=== PATIENT | female | born 1970 | race Caucasian/White ===

== ENCOUNTER 2017-08-12 12:14 | Emergency (ER) | payer SELFPAY ==
[~2017-08-12] VITALS: Ht 160 cm; Wt 100.0 kg
[2017-08-12 12:16] VITALS: BP 124/92; PULSE 117; RESP 18; TEMP 97.3; O2SAT 96
[2017-08-12 15:26] VITALS: RESP 24; O2SAT 95
[2017-08-12 15:29] VITALS: BP_SYST 119; BP_SYST 132; BP_DIAS 71; BP_DIAS 72; BP_DIAS 82; PULSE 72; RESP 20; RESP 24; RESP 30; RESP 38; O2SAT 99
--- NOTE | 2017-08-12 15:58 | PD ---
HPI Chief Complaint: GI Complaint Time Seen by Provider: 15:42 Travel History International Travel<30 days: No Contact w/Intl Traveler<30days: No Traveled to known affect area: No History of Present Illness HPI 47-year-old female presents to emergency Department with complaint of blood in her stool 4 months. Was sent by her primary care provider Dr. Stewart who she followed up for the first time today. Also complaining of right lower quadrant abdominal pain that has been on and off for the last 4 months. Denies abdominal pain at this time. Denies fever, urinary symptoms. Reports nausea at times without vomiting. Reports having episodes of chest pain, shortness of breath, lightheadedness or dizziness. Denies chest pain at this time. Reports loose stools. Denies taking blood thinners. Symptoms are milder in severity. She does take Excedrin a lot for her migraine headaches. Denies history of abdominal surgeries. Last menstrual period was beginning of July. Denies vaginal discharge, odor. Patient adopted an unknown family history. She has history of ablation 3, pacemaker, history of mitral valve prolapse, SVT, tachycardia. Takes metoprolol. Allergies to penicillin. Has no other medical complaints. No other modifying factors or associated signs and symptoms. PFSH Past Medical History Heart Rhythm Problems: Yes (SVT ) Cardiac Catheterization: Yes Cardiovascular Problems: Yes Tetanus Vaccination: > 5 Years ?: Not Past Surgical History Cardiac Surgery: Yes (ABLATION X3, PACEMAKER ) Social History Alcohol Use: Yes (OCC) Tobacco Use: No Substance Use: No Allergies-Medications (Allergen,Severity, Reaction): Uncoded Allergies: PENICILLIN (Allergy, Intermediate, RASH, 08/12/17) Reported Meds & Prescriptions Reported Meds & Active Scripts Active Protonix (Pantoprazole Sodium) 40 Mg Tab 40 Mg PO DAILY Review of Systems Except as stated in HPI: all other systems reviewed are Neg Physical Exam Narrative GENERAL: Well-nourished, well-developed female patient, in no acute distress; afebrile SKIN: Warm and dry. HEAD: Atraumatic. Normocephalic. EYES: Pupils equal and round. No scleral icterus. No injection or drainage. ENT: Mucosa pink and moist. Airway patent. NECK: Trachea midline. CARDIOVASCULAR: Regular rate and rhythm. No murmur appreciated. RESPIRATORY: No accessory muscle use. Clear to auscultation. Breath sounds equal bilaterally. GASTROINTESTINAL: Abdomen soft, tenderness on palpation to right lower and left lower quadrant, nondistended. Hepatic and splenic margins not palpable. Bowel sounds are active 4 quadrants. Nonrigid. No rebound tenderness. No guarding. RECTAL EXAM: Exam done in the presence of a nurse. No masses or tenderness, stool is reddish/brown. Hemaprompt positive. No visualized external hemorrhoids. BACK: No CVA tenderness. MUSCULOSKELETAL: No obvious deformities. No clubbing. No cyanosis. No edema. NEUROLOGICAL: Awake and alert. Oriented 3. No obvious cranial nerve deficits. Motor grossly within normal limits. Normal speech. PSYCHIATRIC: Appropriate mood and affect; insight and judgment normal. Data Data Last Documented VS Vital Signs Date Time Temp Pulse Resp B/P (MAP) Pulse Ox O2 Delivery O2 Flow Rate FiO2 08/12/17 15:29 86 20 132/71 (91) 61 24 119/72 (88) 72 38 132/82 (99) 08/12/17 15:29 99 Room Air 08/12/17 12:16 97.3 Orders Orders Complete Blood Count With Diff (08/12/17 13:22) Comprehensive Metabolic Panel (08/12/17 13:22) Prothrombin Time / Inr (Pt) (08/12/17 13:22) Act Partial Throm Time (Ptt) (08/12/17 13:22) Ecg Monitoring (08/12/17 13:22) Oximetry (08/12/17 13:22) Oxygen Administration (08/12/17 13:22) Iv Access Insert/Monitor (08/12/17 13:22) Type And Screen (08/12/17 13:22) Lipase (08/12/17 15:59) Urinalysis - C+S If Indicated (08/12/17 15:59) Sodium Chlor 0.9% 1000 Ml Inj (Ns 1000 M (08/12/17 15:59) Sodium Chloride 0.9% Flush (Ns Flush) (08/12/17 16:00) Electrocardiogram (08/12/17 15:59) Magnesium (Mg) (08/12/17 15:59) Troponin I (08/12/17 15:59) Chest, Single Ap (08/12/17 15:59) Ct Abd/Pel W Iv Contrast(Rout) (08/12/17 16:22) Iohexol 350 Inj (Omnipaque 350 Inj) (08/12/17 17:30) Labs Laboratory Tests Test 08/12/17 14:16 08/12/17 16:38 Prothrombin Time 10.1 SEC Prothromb Time International Ratio 0.9 RATIO Activated Partial Thromboplast Time 24.3 SEC Urine Color YELLOW Urine Turbidity HAZY Urine pH 5.5 Urine Specific [place] 1.018 Urine Protein NEG mg/dL Urine Glucose (UA) NEG mg/dL Urine Ketones NEG mg/dL Urine Occult Blood TRACE Urine Nitrite NEG Urine Bilirubin NEG Urine Urobilinogen LESS THAN 2.0 MG/DL Urine Leukocyte Esterase TRACE Urine RBC 1 /hpf Urine Squamous Epithelial Cells 2 /hpf Urine Bacteria OCC /hpf Urine Mucus FEW /lpf Microscopic Urinalysis Comment CULT NOT INDICATED Blood Urea Nitrogen 13 MG/DL Creatinine 0.99 MG/DL Random Glucose 90 MG/DL Total Protein 7.4 GM/DL Albumin 3.5 GM/DL Calcium Level 8.7 MG/DL Alkaline Phosphatase 89 U/L Aspartate Amino Transf (AST/SGOT) 19 U/L Alanine Aminotransferase (ALT/SGPT) 21 U/L Total Bilirubin 0.3 MG/DL Sodium Level 137 MEQ/L Potassium Level 4.2 MEQ/L Chloride Level 105 MEQ/L Carbon Dioxide Level 24.6 MEQ/L Anion Gap 7 MEQ/L Estimat Glomerular Filtration Rate 60 ML/MIN Magnesium Level 2.3 MG/DL Troponin I LESS THAN 0.02 NG/ML Lipase 114 U/L White Blood Count 10.4 TH/MM3 Red Blood Count 4.42 MIL/MM3 Hemoglobin 14.4 GM/DL Hematocrit 41.4 % Mean Corpuscular Volume 93.8 FL Mean Corpuscular Hemoglobin 32.6 PG Mean Corpuscular Hemoglobin Concent 34.7 % Red Cell Distribution Width 13.5 % Platelet Count 288 TH/MM3 Mean Platelet Volume 8.6 FL Neutrophils (%) (Auto) 67.0 % Lymphocytes (%) (Auto) 20.8 % Monocytes (%) (Auto) 9.8 % Eosinophils (%) (Auto) 1.9 % Basophils (%) (Auto) 0.5 % Neutrophils # (Auto) 7.0 TH/MM3 Lymphocytes # (Auto) 2.2 TH/MM3 Monocytes # (Auto) 1.0 TH/MM3 Eosinophils # (Auto) 0.2 TH/MM3 Basophils # (Auto) 0.1 TH/MM3 CBC Comment DIFF FINAL Differential Comment MDM Medical Decision Making Medical Screen Exam Complete: Yes Emergency Medical Condition: Yes Medical Record Reviewed: Yes Differential Diagnosis GI bleed, hemorrhoids, polyps, anal fissure Narrative Course 47-year-old female with bloody stool 4 months. Was sent by her primary care provider Dr. Calvillo. Hemaprompt positive. IV set obtained. CBC, CMP, lipase, troponin, magnesium, coags, urinalysis ordered. Normal saline bolus ordered. I offered the patient pain medication and an antiemetic and she declined at this time. 1623: Dr. Rodríguez evaluated the patient and ordered CT abdomen/pelvis. 1715: Chest x-ray with no acute findings. CMP unremarkable. Troponin less than 0.02. Magnesium 2.3. Lipase 114. Coags unremarkable. Urinalysis without signs of infection. 1818: CT abdomen/pelvis concludes: No acute abnormality demonstrated; Mild fatty infiltration of the liver; Simple, benign appearing cyst of the liver; Simple, benign appearing cyst of the left ovary. The patient was discussed with Dr. Neff. I offered for the patient to be observed in the chest pain center and the patient declined. Risks of not being observed in the chest pain center were discussed. Patient verbalizes understanding and agreement. She says she will follow up outpatient. Instructed patient to follow up with gastroenterology. Protonix prescribed for home. Instructed patient to stop taking Excedrin and other NSAIDs. Instructed patient to follow up with primary care provider. Patient verbalizes understanding and agreement with treatment plan. Patient is medically cleared and stable for discharge. Discussed reasons to return to the emergency department. Patient agrees with treatment plan. The patients vital signs are stable and the patient is stable for outpatient follow-up and treatment. Patient discharged home, stable and in no acute distress. Diagnosis Primary Impression: GI bleed Qualified Codes: K92.2 - Gastrointestinal hemorrhage, unspecified Referrals: Director Of Restaurant Operations Primary Care Physician Patient Instructions: Gastrointestinal Bleeding (ED), General Instructions Additional Instructions: Avoid taking Excedrin or any other NSAID such as ibuprofen or Motrin Protonix as prescribed Follow-up with gastroenterology Follow-up with primary care provider Return to the emergency department immediately if worsening of symptoms Med/Other Pt SpecificInfo: Prescription(s) given Scripts Pantoprazole (Protonix) 40 Mg Tab 40 MG PO DAILY for Reflux, #30 TAB 0 Refills Prov: Deysi Marley 08/12/17 Disposition: 01 DISCHARGE HOME Condition: Stable Deysi Marley Aug 12, 2017 15:58
[2017-08-12] MEDS ORDERED: SODIUM CHLOR 0.9% 1000 ML INJ 1,000 ML IV SCH (15:59)
[2017-08-12] MEDS ORDERED: SODIUM CHLORIDE 0.9% FLUSH 10 ML FLUSH IV FLUSH PRN (16:00)
--- NOTE | 2017-08-12 16:32 | RADRPT ---
EXAM DATE/TIME: 08/12/2017 16:09 [facility] COMPARISON: No previous studies available for comparison. INDICATIONS : Left sided chest pain for one day with rectal bleeding for 4 months. MEDICAL HISTORY : SVT. Mitral valve prolapse. Tachycardia. Arythmia. SURGICAL HISTORY : None. ENCOUNTER: Initial ACUITY: 4 - 6 months PAIN SCORE: 3/10 LOCATION: Left chest FINDINGS: A single view of the chest demonstrates the lungs to be symmetrically aerated without evidence of mas s, infiltrate or effusion. The cardiomediastinal contours are unremarkable. Osseous structures are intact. CONCLUSION: 1. No acute cardiopulmonary disease. Ford Arriaza MD on August 12, 2017 at 16:30 Board Certified Radiologist. This report was verified electronically.
[2017-08-12 16:49] LABS: BACTERIA, URINE OCC /hpf; BLOOD, URINE TRACE (NEG); COMMENT (UR) CULT NOT INDICATED; CULTURE IF INDICATED CULT NOT INDICATED; GLUCOSE,URINE NEG (NEG); KETONE, URINE NEG (NEG); MUCUS URINE FEW /lpf (OCC); NITRITE,URINE NEG (NEG); PH, URINE 5.5 (5.0-8.5); SQUAMOUS EPITHELIAL CELL URINE 2 /hpf (0-5); URINE COLOR YELLOW (YELLW/STRAW)
[2017-08-12 16:56] LABS: ALT (GPT) 21 U/L (10-53)
[2017-08-12 16:59] LABS: ALKALINE PHOSPHATASE 89 U/L (45-117); TOTAL BILIRUBIN ADULT 0.3 MG/DL (0.2-1.0)
[2017-08-12 17:06] LABS: APTT (PATIENT) 24.3 SEC (24.3-30.1); INTERNATIONAL NORMALIZED RATIO 0.9 RATIO; PROTHROMBIN TIME - PATIENT 10.1 SEC (9.8-11.6)
[2017-08-12 17:07] LABS: ANION GAP 7 MEQ/L (5-15); AST (GOT) 19 U/L (15-37); BICARBONATE 24.6 MEQ/L (21.0-32.0); BLOOD UREA NITROGEN 13 MG/DL (7-18); CHLORIDE 105 MEQ/L (98-107); GLOMERULAR FILTRATION RATE 60 ML/MIN (>89); MAGNESIUM 2.3 MG/DL (1.5-2.5); POTASSIUM 4.2 MEQ/L (3.5-5.1); SODIUM (NA) 137 MEQ/L (136-145)
[2017-08-12 17:22] LABS: BASOPHIL # 0.1 TH/MM3 (0-0.2); BASOPHIL % 0.5 % (0.0-2.0); EOSINOPHIL # 0.2 TH/MM3 (0-0.4); EOSINOPHIL % 1.9 % (0.0-4.0); HEMATOCRIT 41.4 % (35.0-46.0); HEMO FLAGS DIFF FINAL; LYMPH % 20.8 % (9.0-44.0); LYMPHOCYTE # 2.2 TH/MM3 (1.0-4.8); MEAN CELL VOLUME 93.8 FL (80.0-100.0); MEAN CORPUSCULAR HEMOGLOBIN 32.6 PG (27.0-34.0); MEAN CORPUSCULAR HGB CONC 34.7 % (32.0-36.0); MONO % 9.8 % (0.0-8.0); PLATELET COUNT 288 TH/MM3 (150-450); RED BLOOD COUNT 4.42 MIL/MM3 (4.00-5.30); RED CELL DISTRIBUTION WIDTH 13.5 % (11.6-17.2); WHITE BLOOD COUNT 10.4 TH/MM3 (4.0-11.0)
[2017-08-12] MEDS ORDERED: IOHEXOL 350 MG/ML 10 ML VIAL (for RAD DIAG) IVCONTRAST ONE (17:30)
--- NOTE | 2017-08-12 18:08 | RADRPT ---
EXAM DATE/TIME: 08/12/2017 17:29 [facility] COMPARISON: No previous studies available for comparison. INDICATIONS : Abdominal pain.Gi Bleed. IV CONTRAST: 96 cc Omnipaque 350 (iohexol) IV ORAL CONTRAST: No oral contrast ingested. RADIATION DOSE: 15.79 CTDIvol (mGy) MEDICAL HISTORY : Cardiovascular disease. SURGICAL HISTORY : Heart surgeries x 5 ENCOUNTER: Initial ACUITY: 4 - 6 months PAIN SCALE: 6/10 LOCATION: Bilateral abdominal. TECHNIQUE: Volumetric scanning of the abdomen and pelvis was performed. Using automated exposure control and ad justment of the mA and/or kV according to patient size, radiation dose was kept as low as reasonably achievable to obtain optimal diagnostic quality images. DICOM format image data is available electro nically for review and comparison. FINDINGS: LOWER LUNGS: The visualized lower lungs are clear. LIVER: 4.3 cm simple cyst in the anterior segment of the right hepatic lobe. The liver is mild fatty infiltr ated. No ductal dilatation. Contracted gallbladder, grossly unremarkable. SPLEEN: Normal size without lesion. PANCREAS: Within normal limits. KIDNEYS: Normal in size and shape. There is no mass, stone or hydronephrosis. ADRENAL GLANDS: Within normal limits. VASCULAR: There is no aortic aneurysm. BOWEL/MESENTERY: The stomach, small bowel, and colon demonstrate no acute abnormality. There is no free intraperitone al air or fluid. Appendix well visualized, normal. ABDOMINAL WALL: Within normal limits. RETROPERITONEUM: There is no lymphadenopathy. BLADDER: No wall thickening or mass. REPRODUCTIVE: 22 mm simple appearing cyst of the left ovary. No free fluid. INGUINAL: There is no lymphadenopathy or hernia. MUSCULOSKELETAL: Within normal limits for patient age. CONCLUSION: 1. No acute abnormality demonstrated. 2. Mild fatty infiltration of the liver. 3. Simple, benign appearing cyst of the liver. 4. Simple, benign appearing cyst of the left ovary. Figueroa Inman MD on August 12, 2017 at 18:03 Board Certified Radiologist. This report was verified electronically.
[2017-08-12] MEDS ORDERED: PROT40TA PO (18:33)
--- NOTE | 2017-08-12 21:35 | EKG ---
Date Performed: 08/12/2017 Time Performed: 16:30:39 PTAGE: 47 years EKG: Sinus rhythm LOW QRS VOLTAGE IN PRECORDIAL LEADS POSSIBLE ANTERIOR MYOCARDIAL INFARCTION BORDERLINE ECG NO PREVIOUS TRACING DOCTOR: Deep Rojas Interpretating Date/Time 08/12/2017 21:34:06
== END 2017-08-12 19:14 | disposition home or self-care (01) ==
LOC: NEPD 12:14
DX: K92.2 Gastrointestinal hemorrhage, unspecified (principal); R94.31 Abnormal electrocardiogram [ECG] [EKG]; Z95.0 Presence of cardiac pacemaker
CPT/HCPCS: 71010; 74177; 80053; 81001; 83690; 83735; 84484; 85025; 85610; 85730; 86850; 86900; 86901; 93005; 99285; J7030; Q9967